=== PATIENT | male | born 1955 | race Caucasian/White ===

== ENCOUNTER 2017-09-23 12:18 | Day surgery (SDC) | END 2017-09-23 16:53 | disposition home or self-care (01) ==

== ENCOUNTER 2018-12-08 09:26 | Emergency (ER) | payer BC ==
[~2018-12-08] VITALS: Ht 177.8 cm; Wt 100.6 kg
[~2018-12-08 09:26] MED LIST: MELO15TA30 ORAL; SIMV20TA20 ORAL
[2018-12-08 09:28] VITALS: BP 133/74; PULSE 78; RESP 18; Ht 177.8 cm; Wt 100.6 kg
== END 2018-12-08 10:20 | disposition home or self-care (01) ==
LOC: FTE 09:26
DX: Z48.02 Encounter for removal of sutures (principal); F17.210 Nicotine dependence, cigarettes, uncomplicated
CPT/HCPCS: 99281